=== PATIENT | female | born 1965 | race African-American/Black ===

== ENCOUNTER 2019-10-21 16:01 | Emergency (ER) | payer MEDICARE, MEDICAID ==
[~2019-10-21] VITALS: Ht 167.6 cm; Wt 60.0 kg
[~2019-10-21 16:01] MED LIST: INTE0.3K2; MELO-106 PO
[2019-10-21] MEDS ORDERED: IBUPROFEN 800MG TABLET PO ONE (17:30)
[2019-10-21] MEDS ORDERED: ACETAMINOPHEN 500MG TABLET PO ONE (17:30)
[2019-10-21 17:59] VITALS: BP 118/78
== END 2019-10-21 17:59 | disposition home or self-care (01) ==
LOC: ER 16:01
DX: K02.9 Dental caries, unspecified (principal); K04.7 Periapical abscess without sinus; F12.90 Cannabis use, unspecified, uncomplicated; G35 Multiple sclerosis; H54.8 Legal blindness, as defined in USA
CPT/HCPCS: 99282